=== PATIENT | female | born 1955 | race Caucasian/White ===

== ENCOUNTER 2017-07-19 21:01 | Emergency (ER) | payer MEDICAID ==
[2017-07-19 21:20] VITALS: BMI 22.9
--- NOTE | 2017-07-19 21:33 | ED PDOC ---
Arrival/HPI - General Chief Complaint: Shortness Of Breath Time Seen by Provider: 07/19/17 21:24 Historian: Patient, [employer] - History of Present Illness Narrative History of Present Illness (Text): 07/19/17 21:30 62 year old female, with no history of blood clots or stroke, presents to the Emergency department complaining of dyspnea for 4 days. Patient also complains of a productive cough with yellow sputum and pain/discomfort to the throat. Patient denies any fever, chills, chest pain, nausea, vomiting, diarrhea, urinary symptoms, back pain, neck pain, headache, dizziness, or any other complaints. Time/Duration: < week (4 days) Symptom Onset: Gradual Symptom Course: Unchanged Context: Home Past Medical History - Provider Review Nursing Documentation Reviewed: Yes - Infectious Disease Hx of Infectious Diseases: None - Tetanus Immunization Tetanus Immunization: Unknown - Cardiac Hx Cardiac Disorders: Yes Hx Hypertension: Yes Other/Comment: hx cardiac cath - Pulmonary Hx Respiratory Disorders: No - Neurological Hx Neurological Disorder: No - HEENT Hx HEENT Disorder: Yes (WEARS RX GLASSES) - Endocrine/Metabolic Hx Hyperthyroidism: Yes - Hematological/Oncological Hx Blood Transfusions: No Hx Blood Transfusion Reaction: No - Musculoskeletal/Rheumatological Hx Falls: No - Gastrointestinal Hx Gastritis: Yes Hx Gastroesophageal Reflux: Yes - Psychiatric Hx Anxiety: Yes Hx Substance Use: No - Surgical History Hx Appendectomy: Yes Other/Comment: cardiac cath - Anesthesia Hx Anesthesia: Yes Hx Anesthesia Reactions: No - Suicidal Assessment Feels Threatened In Home Enviroment: No Family/Social History - Physician Review Nursing Documentation Reviewed: Yes Family/Social History: Unknown Family HX Smoking Status: Never Smoked Hx Alcohol Use: No Hx Substance Use: No Hx Substance Use Treatment: No Allergies/Home Meds Allergies/Adverse Reactions: Allergies levothyroxine sodium [From Synthroid] Adverse Reaction (Verified 07/19/17 21:38) RASH Review of Systems - Physician Review All systems were reviewed & negative as marked: Yes - Review of Systems Constitutional: Normal Eyes: Normal ENT: Sore Throat (pain/discomfort to throat) Respiratory: SOB, Cough, Sputum (yellow) Cardiovascular: Normal. absent: Chest Pain Gastrointestinal: Normal Genitourinary Female: Normal Musculoskeletal: Normal Skin: Normal Neurological: Normal Endocrine: Normal Hemo/Lymphatic: Normal Psychiatric: Normal Physical Exam Vital Signs Reviewed: Yes Vital Signs Temp Pulse Resp BP Pulse Ox 07/19/17 22:17 101.3 F H 07/19/17 21:47 101.3 F H 07/19/17 21:29 101.1 F H 109 H 20 154/62 H 100 Temperature: Febrile Blood Pressure: Hypertensive Pulse: Tachycardic Respiratory Rate: Normal Appearance: Positive for: Well-Appearing, Non-Toxic, Comfortable Pain Distress: None Mental Status: Positive for: Alert and Oriented X 3 - Systems Exam Head: Present: Atraumatic, Normocephalic Pupils: Present: PERRL Extroacular Muscles: Present: EOMI Conjunctiva: Present: Normal Mouth: Present: Moist Mucous Membranes Pharnyx: Present: Other (hyperemic throat) Neck: Present: Normal Range of Motion Respiratory/Chest: Present: Clear to Auscultation, Good Air Exchange. No: Respiratory Distress, Accessory Muscle Use Cardiovascular: Present: Regular Rate and Rhythm, Normal S1, S2. No: Murmurs Abdomen: Present: Normal Bowel Sounds. No: Tenderness, Distention, Peritoneal Signs Back: Present: Normal Inspection Upper Extremity: Present: Normal Inspection. No: Cyanosis, Edema Lower Extremity: Present: Normal Inspection. No: Edema Neurological: Present: GCS=15, CN II-XII Intact, Speech Normal Skin: Present: Warm, Dry, Normal Color. No: Rashes Psychiatric: Present: Alert, Oriented x 3, Normal Insight, Normal Concentration Medical Decision Making ED Course and Treatment: 07/19/17 21:32 You were treated in the ED today for shortness of breath otherwise without any nausea/vomiting/headache/dizziness/chest pain/abdomen pain/numbness/tingling/ loss of limb function/pain with urination. no wbc trop neg bnp neg influenza neg ua neg 07/19/17 23:28 pt with sat 95% with still saying SOB. CTA chest pending for PE. signed out to Dr. Parker to fu and disposition. Reassessment Condition: Unchanged - Lab Interpretations Lab Results: 07/19/17 22:00 07/19/17 22:00 Lab Results 07/19/17 22:05: Urine Color Yellow, Urine Appearance Clear, Urine pH 7.5, Ur Specific [place] 1.010, Urine Protein Negative, Urine Glucose (UA) Negative, Urine Ketones Negative, Urine Blood Negative, Urine Nitrate Negative, Urine Bilirubin Negative, Urine Urobilinogen 0.2, Ur Leukocyte Esterase Negative 07/19/17 22:00: pO2 34, VBG pH 7.40, VBG pCO2 45.0, VBG HCO3 27.9, VBG Total CO2 29.3 H, VBG O2 Sat (Calc) 68.9 H, VBG Base Excess 2.5 H, VBG Potassium 3.6, Sodium 142.0, Chloride 109.0 H, Glucose 132 H, Lactate 3.1 H, FiO2 21.0, Venous Blood Potassium 3.6 07/19/17 22:00: PT 11.8, INR 1.03, APTT 30.6 07/19/17 22:00: Sodium 141, Chloride 106, Potassium 3.3 L, Carbon Dioxide 23, Anion Gap 15, BUN 10, Creatinine 0.7, Est GFR ( Amer) > 60, Est GFR (Non- Af Amer) > 60, Random Glucose 115 H, Calcium 9.4, Magnesium 1.9, Total Bilirubin 0.5, AST 32, ALT 23, Alkaline Phosphatase 80, Lactate Dehydrogenase 548, Total Creatine Kinase 86, Troponin I < 0.01 D, NT-Pro-B Natriuret Pep 122 , Total Protein 7.8, Albumin 4.3, Globulin 3.5, Albumin/Globulin Ratio 1.3 07/19/17 22:00: WBC 6.8, RBC 4.59, Hgb 13.7, Hct 40.6, MCV 88.5, MCH 29.8, MCHC 33.7, RDW 13.5, Plt Count 208, MPV 9.8, Gran % 74.5 H, Lymph % (Auto) 16.9 L, [place] % (Auto) 8.2 H, Eos % (Auto) 0.3 L, Baso % (Auto) 0.1, Gran # 5.08, Lymph # 1.2, [place] # 0.6, Eos # 0.0, Baso # 0.01 07/19/17 10:15: Influenza Typ A,B (EIA) Negative for flu a/b I have reviewed the lab results: Yes - RAD Interpretation Radiology Orders: 07/19/17 23:26 ANGIO CHEST PE PROTOCOL [CT] Stat - EKG Interpretation Interpreted by ED Physician: Yes (sinus tachycardia, flipped t waves avr.) Type: 12 lead EKG - Medication Orders Current Medication Orders: Sodium Chloride (Sodium Chloride 0.9%) 1,000 mls @ 999 mls/hr IV .Q1H1M STA Stop: 07/19/17 23:33 Last Admin: 07/19/17 22:39 Dose: 999 mls/hr eMAR Start Stop Document 07/19/17 22:39 IT (Rec: 07/19/17 22:39 IT [id number]) Intravenous Solution Start Date 07/19/17 Start Time 22:39 End Date 07/19/17 Discontinued Medications Acetaminophen (Tylenol 325mg Tab) 975 mg PO STAT STA Stop: 07/19/17 21:59 Last Admin: 07/19/17 22:17 Dose: 975 mg MAR Pain/Vitals Document 07/19/17 22:17 IT (Rec: 07/19/17 22:17 IT [id number]) Pain Reassessment Is This A Pain ReAssessment? No Sleep Is patient sleeping during reassessment? No Vitals Temperature (97.6 F-99.6 F) 101.3 F Temperature Source Rectal - Scribe Statement The provider has reviewed the documentation as recorded by the Scribe Robel Bowman Provider Scribe Attestation: All medical record entries made by the Scribe were at my direction and personally dictated by me. I have reviewed the chart and agree that the record accurately reflects my personal performance of the history, physical exam, medical decision making, and the department course for this patient. I have also personally directed, reviewed, and agree with the discharge instructions and disposition. Disposition/Present on Arrival - Present on Arrival History of DVT/PE: No History of Uncontrolled Diabetes: No Urinary Catheter: No History of Decub. Ulcer: No History Surgical Site Infection Following: None - Disposition Have Diagnosis and Disposition been Completed?: Yes Diagnosis: SOB (shortness of breath) Referrals: Maritza Oliver DO [Primary Care Provider] - Follow up with primary Forms: [employer] (Nepali)
[2017-07-19 22:17] LABS: VENOUS BLOOD GAS BASE EXCESS 2.5 mmol/L (0.0-2.0); VENOUS BLOOD GAS PO2 34 mm/Hg (30-55)
[2017-07-19 22:19] LABS: BASO # 0.01 K/mm3 (0.0-2.0); BASO % 0.1 % (0.0-3.0); EOS % 0.3 % (1.5-5.0); GRAN # 5.08 (1.4-6.5); GRAN % 74.5 % (50.0-68.0); HEMOGLOBIN 13.7 g/dL (12.0-16.0); LYMPH # 1.2 (1.2-3.4); LYMPH % 16.9 % (22.0-35.0); MEAN CELL VOLUME 88.5 fl (80.0-105.0); MEAN CORPUSCULAR HEMOGLOBIN 29.8 pg (25.0-35.0); MEAN CORPUSCULAR HGB CONC 33.7 g/dl (31.0-37.0); MEAN PLATELET VOLUME 9.8 fl (7.0-11.0); MONO # 0.6 (0.1-0.6); MONO % 8.2 % (1.0-6.0); RBC 4.59 10^6/uL (3.5-6.1); RED CELL DISTRIBUTION WIDTH 13.5 % (11.5-14.5); WHITE BLOOD COUNT 6.8 10^3/ul (4.5-11.0)
[2017-07-19 22:24] LABS: ALB/GLOB RATIO 1.3 (1.1-1.8); ALBUMIN 4.3 g/dL (3.0-4.8); ALT/SGPT 23 U/L (7-56); AST/SGOT 32 U/L (14-36); BLOOD UREA NITROGEN 10 mg/dL (7-21); CALCIUM 9.4 mg/dL (8.4-10.5); GFR AFRICAN-AMERICAN > 60; GFR NON-AFRICAN AMERICAN > 60; MAGNESIUM 1.9 mg/dL (1.7-2.2)
[2017-07-19 22:26] LABS: PH,URINE 7.5 (4.7-8.0); URINE BILIRUBIN NEGATIVE (NEGATIVE); URINE BLOOD NEGATIVE (NEGATIVE); URINE GLUCOSE (UA) NEGATIVE (NEGATIVE); URINE LEUKOCYTE ESTERASE NEGATIVE Leu/uL (NEGATIVE); URINE NITRATE NEGATIVE (NEGATIVE); URINE PROTEIN NEGATIVE mg/dL (<30 mg/dL); URINE UROBILINOGEN 0.2 E.U./dL (<1 E.U./dL)
[2017-07-19 22:33] LABS: INR 1.03 (0.93-1.08); PARTIAL THROMBOPLASTIN TIME 30.6 Seconds (25.1-36.5); PROTHROMBIN TIME 11.8 SECONDS (9.4-12.5)
[2017-07-19] MEDS ORDERED: Sodium Chloride 0.9% 1,000 ML IV STA (22:33)
[2017-07-19 22:35] LABS: URINE APPEARANCE CLEAR (CLEAR); URINE COLOR YELLOW (YELLOW)
[2017-07-19 22:36] LABS: B-TYPE NATRIURETIC PEPTIDE 122 pg/mL (0-450); TROPONIN I < 0.01 ng/mL
[2017-07-20] MEDS ORDERED: Iodixanol 320 MG/ML 100 ML BOTTLE IV ONE (00:05)
--- NOTE | 2017-07-20 00:12 | ED PDOC ---
Physical Exam Vital Signs Temp Pulse Resp BP Pulse Ox 07/20/17 00:04 96 H 17 121/68 99 07/19/17 22:17 101.3 F H 07/19/17 21:47 101.3 F H 07/19/17 21:30 18 100 07/19/17 21:29 101.1 F H 109 H 20 154/62 H 100 Medical Decision Making ED Course and Treatment: 07/19/17 23:00 Case endorsed to me by Dr. Hays, pending CTA Chest, re-evaluation, and disposition. 07/20/17 01:29 CTA Chest shows: Limitations: Motion artifact - mild. Pulmonary arteries: No definite pulmonary embolism. Aorta: Minimal atherosclerotic disease. No aneurysm. Lungs: Minimal atelectasis/scarring. No consolidation. Few pulmonary nodules, up to 0.4 cm. Pleural space: No significant effusion. No pneumothorax. Heart: Borderline cardiomegaly. No significant pericardial effusion. Bones/joints: No acute fracture. Soft tissues: Unremarkable. Lymph nodes: No pathologically enlarged lymph nodes. Spleen: Small calcification. IMPRESSION: 1. No definite CT evidence of pulmonary embolism. 2. Pulmonary nodules. For low-risk patients, no follow-up is necessary. For high -risk patients (smoking history or other known risk factors) an optional CT at 12 months could be performed. 3. Incidental/non-acute findings are described above. - Lab Interpretations Lab Results: 07/19/17 22:00 07/19/17 22:00 Lab Results 07/19/17 23:20: Grp A Beta Strep Ag Negative 07/19/17 22:05: Urine Color Yellow, Urine Appearance Clear, Urine pH 7.5, Ur Specific [place] 1.010, Urine Protein Negative, Urine Glucose (UA) Negative, Urine Ketones Negative, Urine Blood Negative, Urine Nitrate Negative, Urine Bilirubin Negative, Urine Urobilinogen 0.2, Ur Leukocyte Esterase Negative 07/19/17 22:00: pO2 34, VBG pH 7.40, VBG pCO2 45.0, VBG HCO3 27.9, VBG Total CO2 29.3 H, VBG O2 Sat (Calc) 68.9 H, VBG Base Excess 2.5 H, VBG Potassium 3.6, Sodium 142.0, Chloride 109.0 H, Glucose 132 H, Lactate 3.1 H, FiO2 21.0, Venous Blood Potassium 3.6 07/19/17 22:00: PT 11.8, INR 1.03, APTT 30.6 07/19/17 22:00: Sodium 141, Chloride 106, Potassium 3.3 L, Carbon Dioxide 23, Anion Gap 15, BUN 10, Creatinine 0.7, Est GFR ( Amer) > 60, Est GFR (Non- Af Amer) > 60, Random Glucose 115 H, Calcium 9.4, Magnesium 1.9, Total Bilirubin 0.5, AST 32, ALT 23, Alkaline Phosphatase 80, Lactate Dehydrogenase 548, Total Creatine Kinase 86, Troponin I < 0.01 D, NT-Pro-B Natriuret Pep 122 , Total Protein 7.8, Albumin 4.3, Globulin 3.5, Albumin/Globulin Ratio 1.3 07/19/17 22:00: WBC 6.8, RBC 4.59, Hgb 13.7, Hct 40.6, MCV 88.5, MCH 29.8, MCHC 33.7, RDW 13.5, Plt Count 208, MPV 9.8, Gran % 74.5 H, Lymph % (Auto) 16.9 L, [place] % (Auto) 8.2 H, Eos % (Auto) 0.3 L, Baso % (Auto) 0.1, Gran # 5.08, Lymph # 1.2, [place] # 0.6, Eos # 0.0, Baso # 0.01 07/19/17 10:15: Influenza Typ A,B (EIA) Negative for flu a/b - RAD Interpretation Radiology Orders: 07/19/17 23:26 ANGIO CHEST PE PROTOCOL [CT] Stat Nursing Director: Radiologist - Medication Orders Current Medication Orders: Discontinued Medications Acetaminophen (Tylenol 325mg Tab) 975 mg PO STAT STA Stop: 07/19/17 21:59 Last Admin: 07/19/17 22:17 Dose: 975 mg MAR Pain/Vitals Document 07/19/17 22:17 IT (Rec: 07/19/17 22:17 IT [id number]) Pain Reassessment Is This A Pain ReAssessment? No Sleep Is patient sleeping during reassessment? No Vitals Temperature (97.6 F-99.6 F) 101.3 F Temperature Source Rectal Sodium Chloride (Sodium Chloride 0.9%) 1,000 mls @ 999 mls/hr IV .Q1H1M STA Stop: 07/19/17 23:33 Last Admin: 07/19/17 22:39 Dose: 999 mls/hr eMAR Start Stop Document 07/19/17 22:39 IT (Rec: 07/19/17 22:39 IT [id number]) Intravenous Solution Start Date 07/19/17 Start Time 22:39 End Date 07/19/17 Disposition/Present on Arrival - Present on Arrival Any Indicators Present on Arrival: No History of DVT/PE: No History of Uncontrolled Diabetes: No Urinary Catheter: No History of Decub. Ulcer: No History Surgical Site Infection Following: None - Disposition Have Diagnosis and Disposition been Completed?: Yes Diagnosis: SOB (shortness of breath), Bronchitis Disposition: HOME/ ROUTINE Disposition Time: 03:20 Condition: GOOD Discharge Instructions (ExitCare): Acute Bronchitis (ED) Print Language: [place] Prescriptions: levoFLOXacin [Levaquin] 500 mg PO DAILY #10 tab Albuterol HFA [Ventolin HFA] 1 puff IH QID #1 puff Referrals: Maritza Oliver DO [Primary Care Provider] - Follow up with primary Forms: [employer] (Kinyarwanda)
--- NOTE | 2017-07-20 01:24 | CT ---
EXAM: CT Angiography Chest With Intravenous Contrast CLINICAL HISTORY: 62 years old, female; Signs and symptoms; Shortness of breath; Additional info: 62yof, with SOB TECHNIQUE: Axial computed tomographic angiography images of the chest with intravenous contrast using pulmonary embolism protocol. All CT scans at this facility use one or more dose reduction techniques, viz.: automated exposure control; ma/kV adjustment per patient size (including targeted exams where dose is matched to indication; i.e. head); or iterative reconstruction technique. MIP reconstructed images were created and reviewed. Coronal and sagittal reformatted images were created and reviewed. CONTRAST: 96 mL of VISI 320 administered intravenously. COMPARISON: No relevant prior studies available. FINDINGS: Limitations: Motion artifact - mild. Pulmonary arteries: No definite pulmonary embolism. Aorta: Minimal atherosclerotic disease. No aneurysm. Lungs: Minimal atelectasis/scarring. No consolidation. Few pulmonary nodules, up to 0.4 cm. Pleural space: No significant effusion. No pneumothorax. Heart: Borderline cardiomegaly. No significant pericardial effusion. Bones/joints: No acute fracture. Soft tissues: Unremarkable. Lymph nodes: No pathologically enlarged lymph nodes. Spleen: Small calcification. IMPRESSION: 1. No definite CT evidence of pulmonary embolism. 2. Pulmonary nodules. For low-risk patients, no follow-up is necessary. For high-risk patients (smoking history or other known risk factors) an optional CT at 12 months could be performed. 3. Incidental/non-acute findings are described above.
[2017-07-20 02:16] LABS: VENOUS BLOOD GAS BASE EXCESS 0.2 mmol/L (0.0-2.0); VENOUS BLOOD GAS PO2 33 mm/Hg (30-55); VENOUS BLOOD PH 7.33 (7.32-7.43)
[2017-07-20 02:19] VITALS: PULSE 82; O2SAT 98
[2017-07-20] MEDS ORDERED: Albuterol-Ipratrop 3 mg / 0.5 (3 ml) UD IH STA (02:36)
[2017-07-20] MEDS ORDERED: levoFLOXacin 500 MG TAB PO STA (02:37)
[2017-07-20 03:21] VITALS: BP 114/82; RESP 17; TEMP 98.8
--- NOTE | 2017-07-20 09:55 | CARD ---
APPROVED REPORT EKG Measurement Heart [id number] <Conclusion> Sinus tachycardia NSSTW changes, new
== END 2017-07-20 03:21 | disposition home or self-care (01) ==
LOC: ED 21:01
DX: R06.02 Shortness of breath (principal); I10 Essential (primary) hypertension
CPT/HCPCS: 71275; 80053; 81003; 82550; 82803; 83615; 83735; 83880; 84484; 85025; 85610; 85730; 87040; 87070; 87086; 87430; 87804; 93005; 99285; J7040; Q9967